=== PATIENT | male | born 1980 | race Caucasian/White ===

== ENCOUNTER 2025-03-12 07:51 | Emergency (ER) | payer MEDICAID ==
[~2025-03-12] VITALS: Ht 167.6 cm; Wt 65.0 kg
[2025-03-12 07:56] VITALS: O2SAT 100
[2025-03-12] MEDS: HYDROCODONE/ACETAMINOPHEN 5/325MG TABLET PO ONE (08:23)
[2025-03-12] MEDS: LIDOCAINE HCL 1% 20ML VIAL INFIL ONE (09:15)
[2025-03-12 11:12] LABS: HEMATOCRIT. 44.7 % (42.0-52.0); HEMOGLOBIN. 14.6 g/dL (14.0-18.0); MEAN PLATELET VOLUME 7.9 fl (7.4-10.4); PLATELET 233 x1000/uL (130-400); RED BLOOD CELL COUNT 5.26 mill/uL (4.7-6.1); RED CELL DISTRIBUTION WIDTH 13.9 % (11.6-14.6)
[2025-03-12 11:26] LABS: INR 1.1
[2025-03-12 11:49] LABS: CREATININE 0.9 mg/dL (0.6-1.3)
[2025-03-12 11:50] LABS: ETHANOL BLOOD < 10 mg/dL (<10); PROTEIN TOTAL 8.4 g/dL (6.0-8.3); UREA NITROGEN BLOOD 15 mg/dL (9-23)
[2025-03-12 11:51] LABS: ASPARTATE AMINOTRANSFERASE 21 IU/L (<34)
[2025-03-12 11:52] LABS: BILIRUBIN DIRECT 0.4 mg/dL (<=3.0); BILIRUBIN TOTAL 0.9 mg/dL (0.1-1.0)
[2025-03-12 12:01] LABS: BAND% 11.0 % (1.0-6.0); EOSINOPHILS % MANUAL 3.0 % (0.0-5.0); LYMPHOCYTES % MANUAL 42.0 % (20.0-50.0); MONOCYTES % MANUAL 23.0 % (2.0-8.0); NEUTROPHILS % MANUAL 21.0 % (45.0-75.0); PLATELET ESTIMATE NORMAL
[2025-03-12] MEDS ORDERED: OXYC-100 MT (14:21)
[2025-03-12 15:00] VITALS: BP 113/73; PULSE 85; RESP 15; TEMP 37.1; O2SAT 99
== END 2025-03-12 15:10 | disposition home or self-care (01) ==
LOC: ER 08:00 → CANBEDREQ 14:33 → ER 15:10
DX: S02.92XA Unspecified fracture of facial bones, initial encounter for closed fracture (principal); S01.21XA Laceration without foreign body of nose, initial encounter; S01.01XA Laceration without foreign body of scalp, initial encounter; Y04.0XXA Assault by unarmed brawl or fight, initial encounter; Y93.89 Activity, other specified; Y92.89 Other specified places as the place of occurrence of the external cause; Y99.8 Other external cause status
CPT/HCPCS: 80076; 80048; 80320; 83690; 85025; 85610; 36415; 73130; 70450; 70486; 99291; J2003; Z7610 ×2; A4606; G0480